=== PATIENT | male | born 1980 | race Caucasian/White ===

== ENCOUNTER 2018-04-06 20:59 | Emergency (ER) | payer OTHER, SELFPAY ==
--- NOTE | 2018-04-06 21:06 | ED.EYEPROB ---
HPI - Eye Problem <SHUN Beaver - Last Filed: 04/06/18 21:40> General Chief complaint: Eye Problems Stated complaint: ACETONE SPRAYES IN RT EYE Time Seen by Provider: 04/06/18 21:06 History of Present Illness HPI Narrative: 37-year-old male here for complaint of accidental exposure to lack of thinner to his right eye. At approximately 8:45 this evening patient hit pocket containing the lack of thinner and splashed up into his right eye. He was wearing safety glasses at the time not gargles. He flushed the eye for approximately 5 min while at work with a hose. He was irrigated at triage again he states that he felt better after irrigation. He does state that he has some slight blurriness to his right eye vision. He denies any other injuries or concerns. Tetanus is up-to-date. MD chief complaint: eye pain Related Data Previous Rx's Medication Instructions Recorded fluticasone 1 spray INTRANASAL SEE 05/05/17 INSTRUCTIONS #16 gm dextroamphetamine-amphetamine 20 20 mg PO TID #90 tab MDD 60mg 03/27/18 mg tablet erythromycin 0.5 inch EYE-RIGHT QID 7 Days #3.5 04/06/18 gram Allergies Allergy/AdvReac Type Severity Reaction Status Date / Time codeine [CODEINE] Allergy Mild UNKNOWN. Verified 04/06/18 21:16 FROM WHEN HE WAS A CHILD Review of Systems <SHUN Beaver - Last Filed: 04/06/18 21:40> Constitutional Denies chills, Denies fever(s), Denies lethargy and Denies weakness Eyes Comments: Exposure of right eye to a [place] thinner. ENT Ears, Nose, Mouth, and Throat: Denies change in voice, Denies neck pain and Denies sore throat Cardiovascular Denies chest pain, Denies irregular heart rhythm, Denies lightheadedness, Denies palpitations, Denies dyspnea, Denies dyspnea on exertion and Denies orthopnea Respiratory Denies cough, Denies dyspnea, Denies dyspnea on exertion and Denies wheezing Gastrointestinal Gastrointestinal: Denies abdominal pain, Denies change in bowel habits, Denies diarrhea, Denies nausea and Denies vomiting Genitourinary Denies hematuria, Denies flank pain, Denies urinary incontinence and Denies urinary urgency Musculoskeletal Denies neck pain Integumentary/Breasts Denies pruritus, Denies erythema, Denies rash and Denies wounds Neurologic Denies confusion and Denies weakness Psychiatric Denies anxiety, Denies confusion, Denies depression, Denies homicidal ideation and Denies suicidal ideation Endocrine Denies palpitations Allergic/Immunologic Denies wheezing Exam <SHUN Beaver - Last Filed: 04/06/18 21:40> Initial Vital Signs Initial Vital Signs: Vital Signs Temperature 98 F 04/06/18 21:13 Pulse Rate 80 04/06/18 21:13 Respiratory Rate 18 04/06/18 21:13 Blood Pressure 140/80 H 04/06/18 21:13 Pulse Oximetry 99 04/06/18 21:13 Const General: cooperative and well developed Nutritional Appearance: well nourished Orientation: alert, awake, oriented x3 and not confused HENMT Nose: external nose normal Mouth: oral mucosae normal and moist mucous membranes Eyes Sclera: scleral abnormality (Slight injection to right sclera and conjunctiva) right Pupils: PERRL EOM: EOM intact bilaterally Other: Florascein exam shows uptake to the sclera at the 6 o'clock position on the orbit. No corneal uptake. No foreign bodies. Orbit is intact. <Noa Solis DO - Last Filed: 04/07/18 01:18> Initial Vital Signs Initial Vital Signs: Vital Signs Temperature 98 F 04/06/18 21:13 Pulse Rate 80 04/06/18 21:13 Respiratory Rate 18 04/06/18 21:13 Blood Pressure 140/80 H 04/06/18 21:13 Pulse Oximetry 99 04/06/18 21:13 Course <SHUN Beaver - Last Filed: 04/06/18 21:40> Orders Ordered: Discontinued Medications Erythromycin (Erythromycin Ophth Oint) 1 applic EYE-RIGHT NOW ONE Stop: 04/06/18 21:31 Last Admin: 04/06/18 21:41 Dose: 1 applic Vital Signs - 8 hr 04/06/18 21:13 Temperature 98 F Pulse Rate 80 Respiratory Rate 18 Blood Pressure 140/80 H Pulse Oximetry 99 <DO Loida Rocha Last Filed: 04/07/18 01:18> Orders Ordered: Discontinued Medications Erythromycin (Erythromycin Ophth Oint) 1 applic EYE-RIGHT NOW ONE Stop: 04/06/18 21:31 Last Admin: 04/06/18 21:41 Dose: 1 applic Vital Signs - 8 hr 04/06/18 21:13 Temperature 98 F Pulse Rate 80 Respiratory Rate 18 Blood Pressure 140/80 H Pulse Oximetry 99 MDM - Eye Problem <Travis ThomasrudynereidaSHUN - Last Filed: 04/06/18 21:40> [facility] Narrative Medical decision making narrative: Uptake to 6:00 position was seen on fluorescein exam to sclera. No corneal uptake is seen. Visual acuity was unremarkable. Lactate thinner MSDS shows no PH for lack her thinner. PH of his right eye was 7 to 8. His eye was irrigated well both at work and here. He is prescribed erythromycin ointment to cover prophylactically for infection. [id number] Tylenol and Motrin as needed for any discomfort. Follow up with primary care provider in the next few days for re-evaluation. For any worsening symptoms return to the emergency room. Discharge Plan Departure Patient Disposition: Home, Self-Care Clinical Impression: Acute chemical conjunctivitis of right eye Discharge Date/Time: 04/06/18 21:58 Interventions: ED Discharge Assessment Last Done: 04/06/18 21:57 Instructions: DI for Chemical Eye Burn Activity Restrictions/Additional Instructions: On exam today pH of the eye was neutral. MSDS for lack thinners shows that pH neutral. On exam some irritation is seen to the white part of the eye called the sclera at the 6 o'clock position of URI. No corneal injury was seen. To cover for infection year treated with an antibiotic called erythromycin use as directed. [id number] Tylenol or Motrin as needed for any discomfort. Follow up with her primary care provider next few days for re-evaluation. For any worsening symptoms return to the emergency room. Prescriptions: New erythromycin 5 mg/gram (0.5 %) ointment 0.5 inch EYE-RIGHT QID 7 Days Qty: 3.5 RF: 0 No Action fluticasone 16 GM spray,suspension 1 spray Intranasal SEE INSTRUCTIONS Qty: 16 RF: 0 dextroamphetamine-amphetamine [Adderall] 20 mg tablet 20 mg PO TID MDD 60mg Qty: 90 RF: 0 Referrals: Maggie Chong DO [Primary Care Provider] - <Noa Solis DO - Last Filed: 04/07/18 01:18> Cosign ED Attending Cosnaelature Attestation: I was immediately available in the department for consultation. Documentation has been reviewed. I agree with assessment and plan.
[2018-04-06 21:13] VITALS: BP 140/80; PULSE 80; RESP 18; TEMP 36.6; O2SAT 99; BMI 25.5
[2018-04-06] MEDS: ERYTHROMYCIN OPHTH 1 GM OINT 1 APPLIC EYE-RIGHT (21:41)
== END 2018-04-06 21:58 | disposition home or self-care (01) ==
PROVIDERS: Emergency Provider Nurse Practitioner Family; Family Provider Family Medicine; PCP Family Medicine
DX: T52.4X1A Toxic effect of ketones, accidental (unintentional), initial encounter (principal); H10.211 Acute toxic conjunctivitis, right eye
CPT/HCPCS: 99283